=== PATIENT | male | born 1995 | race Asian ===

== ENCOUNTER 2018-11-09 14:46 | Emergency (ER) | payer BC ==
[~2018-11-09] VITALS: Ht 170.2 cm; Wt 68.0 kg
[2018-11-09 14:59] VITALS: Ht 170.2 cm; Wt 68.0 kg
[2018-11-09 19:42] VITALS: BP 115/79
== END 2018-11-09 19:42 | disposition home or self-care (01) ==
LOC: ED 14:46
DX: S42.301A Unspecified fracture of shaft of humerus, right arm, initial encounter for closed fracture (principal); S50.01XA Contusion of right elbow, initial encounter; S30.0XXA Contusion of lower back and pelvis, initial encounter; W18.30XA Fall on same level, unspecified, initial encounter; Y93.67 Activity, basketball; Y92.310 Basketball court as the place of occurrence of the external cause; Y99.8 Other external cause status
CPT/HCPCS: 90715; J3010